=== PATIENT | male | born 1990 | race Caucasian/White ===

== ENCOUNTER 2016-09-24 15:01 | Emergency (ER) | payer OTHER ==
[~2016-09-24] VITALS: Ht 182.9 cm; Wt 89.0 kg
[2016-09-24 18:41] VITALS: BP 120/71
== END 2016-09-24 18:41 | disposition home or self-care (01) ==
LOC: ED 15:01
DX: S80.02XA Contusion of left knee, initial encounter (principal); Y93.51 Activity, roller skating (inline) and skateboarding; Y99.8 Other external cause status; Y92.89 Other specified places as the place of occurrence of the external cause

== ENCOUNTER 2018-04-16 13:14 | Emergency (ER) | payer OTHER ==
[~2018-04-16] VITALS: Ht 185.4 cm; Wt 94.8 kg
[2018-04-16 13:25] VITALS: BP 164/92; Ht 185.4 cm; Wt 94.8 kg
== END 2018-04-16 14:18 | disposition home or self-care (01) ==
LOC: ED 13:14
DX: H92.02 Otalgia, left ear (principal); R09.81 Nasal congestion